=== PATIENT | female | born 1950 | race Two or more races ===

== ENCOUNTER 2017-04-19 09:59 | Outpatient (CLI) | payer OTHER ==
[~2017-04-19] VITALS: Ht 157.5 cm; Wt 63.0 kg
== END 2017-04-19 10:15 | disposition home or self-care (01) ==
LOC: OFIC 805 09:59
DX: H92.01 Otalgia, right ear (principal); M54.2 Cervicalgia; R09.81 Nasal congestion; J32.8 Other chronic sinusitis

== ENCOUNTER 2020-06-16 09:40 | Outpatient (CLI) | payer OTHER | END 2020-06-16 09:45 | disposition home or self-care (01) | LOC: SONOGRAMA 09:40 | PROVIDERS: ATTEND Pathology Anatomic Pathology & Clinical Pathology | DX: E07.89 Other specified disorders of thyroid (principal); E04.2 Nontoxic multinodular goiter ==

== ENCOUNTER 2020-12-11 11:40 | Outpatient (CLI) | payer OTHER | END 2020-12-11 11:51 | disposition home or self-care (01) | LOC: SONOGRAMA 11:40 | PROVIDERS: ATTEND Pathology Anatomic Pathology & Clinical Pathology | DX: E07.89 Other specified disorders of thyroid (principal) ==

== ENCOUNTER → 2022-12-10 | Outpatient (CLI) | payer OTHER | END | disposition home or self-care (01) | LOC: NUCLEAR 11-12 07:00 | PROVIDERS: ATTEND Internal Medicine | DX: I11.9 Hypertensive heart disease without heart failure (principal); I25.118 Atherosclerotic heart disease of native coronary artery with other forms of angina pectoris; R00.2 Palpitations | CPT/HCPCS: 78452; 93017; A9500 ==

== ENCOUNTER 2024-10-08 14:01 | Outpatient (CLI) | payer OTHER | END 2024-10-08 14:02 | disposition home or self-care (01) | LOC: SONOGRAMA 14:01 | PROVIDERS: ATTEND Pathology Anatomic Pathology | DX: E04.2 Nontoxic multinodular goiter (principal) ==

== ENCOUNTER 2024-12-17 06:16 | Emergency (ER) | payer OTHER ==
[~2024-12-17] VITALS: Ht 154.9 cm; Wt 67.1 kg
[2024-12-17] MEDS ORDERED: AVAPRO300 MG PO (06:30)
[2024-12-17] MEDS ORDERED: ASPIRIN81 MG PO (06:30)
[2024-12-17] MEDS ORDERED: SYNTHROID50 MCG PO (06:31)
[2024-12-17] MEDS ORDERED: ROSUVASTATIN CAL5 MG PO (06:31)
[2024-12-17] MEDS ORDERED: PROZAC20 MG PO (06:31)
[2024-12-17] MEDS ORDERED: KETOROLAC TROMETHAMINE 30 MG VIAL IU STA (06:47)
[2024-12-17] MEDS ORDERED: ORPHENADRINE CITRATE 30 MG/ML AMPUL IM STA (06:47)
[2024-12-17 08:35] LABS: BASO % 0.5 % (0.1-1.2); EOS # 0.16 (0.04-0.54); EOS % 1.7 % (0.7-7.0); LYMPH # 3.12 (1.18-3.74); LYMPH % 32.8 % (19.3-53.1); MEAN PLATELET VOLUME 8.70 fl (9.4-12.4); MONO # 0.76 (0.24-0.82); MONO % 8.0 % (4.7-12.5); NEUT # 5.39 (1.56-6.13); NEUT % 56.7 % (34.0-71.1); RED CELL DISTRIBUTION WIDTH 13.8 % (11.6-14.4)
[2024-12-17 09:36] LABS: ALT/SGPT 28.0 U/L (12-78); AST/SGOT 33.0 U/L (15-37); BILIRUBIN TOTAL 0.52 mg/dL (0.3-1.2); BUN CREA RATIO 20.0 (7.0-25.0); CREATININE SERUM 0.81 mg/dL (0.55-1.02); GFR 68.93; GLOBULINA 3.8 G/DL (2.4-3.5); GLUCOSE FASTING 118.0 mg/dL (65-100); OSMOLALITY SERUM 280.0 MOSM/KG (275-295)
[2024-12-17 09:43] LABS: INR 0.97
== END 2024-12-17 13:45 | disposition home or self-care (01) ==
LOC: ER 06:16
PROVIDERS: Physician Assistant Medical
DX: S00.93XA Contusion of unspecified part of head, initial encounter (principal); W18.39XA Other fall on same level, initial encounter; Y93.K1 Activity, walking an animal; Y92.89 Other specified places as the place of occurrence of the external cause; Y99.9 Unspecified external cause status; Z88.0 Allergy status to penicillin
CPT/HCPCS: 36415; 70450; 72125; 96365; 96372; 99284; J1885; J2360